=== PATIENT | female | born 1985 ===

== ENCOUNTER 2022-06-17 13:06 | Emergency (ER) | payer MEDICAID ==
[2022-06-17 14:09] VITALS: BP 105/66
== END 2022-06-18 11:27 | disposition left against medical advice (07) ==
LOC: ED 13:06
DX: S41.119A Laceration without foreign body of unspecified upper arm, initial encounter (principal); Z53.21 Procedure and treatment not carried out due to patient leaving prior to being seen by health care provider; W45.8XXA Other foreign body or object entering through skin, initial encounter; Y93.89 Activity, other specified; Y92.89 Other specified places as the place of occurrence of the external cause; Y99.8 Other external cause status